=== PATIENT | female | born 1990 | race Caucasian/White ===

== ENCOUNTER 2018-07-13 17:56 | Emergency (ER) | payer BC ==
[~2018-07-13] VITALS: Ht 157.5 cm; Wt 87.5 kg
[~2018-07-13 17:56] MED LIST: AMOXICILLIN875 MG PO; CELEXA10 MG PO; NOHOMEMEDICATIONS; ZANTAC 150MG T150 M1 PO; ZOFRAN 4 MG ORAL4 M1 DIS; ZOFRAN ODT4 MG PO; ZOLOFT25 MG PO; [UNRECOGNIZED DRUG - REMARK]; [UNRECOGNIZED DRUG - REMARK]
[2018-07-13 19:07] VITALS: BP 128/69
== END 2018-07-13 19:07 | disposition home or self-care (01) ==
LOC: M.ERS 17:56
DX: S92.352B Displaced fracture of fifth metatarsal bone, left foot, initial encounter for open fracture (principal); F41.9 Anxiety disorder, unspecified; Z90.49 Acquired absence of other specified parts of digestive tract; W01.0XXA Fall on same level from slipping, tripping and stumbling without subsequent striking against object, initial encounter; Y93.89 Activity, other specified; Y92.89 Other specified places as the place of occurrence of the external cause; Y99.8 Other external cause status

== ENCOUNTER 2019-01-31 17:44 | Emergency (ER) | payer BC ==
[~2019-01-31] VITALS: Ht 157.5 cm; Wt 89.4 kg
[2019-01-31 17:49] VITALS: BP 107/75
[2019-01-31] MEDS ORDERED: BIRTH CONTROL PILL (17:53)
[2019-01-31 18:24] LABS: INFLUENZA A ANTIGEN None Detected (None Detect); INFLUENZA B ANTIGEN None Detected (None Detect)
[2019-01-31] MEDS ORDERED: PREDNISONE 20 M20 M1 PO (18:31)
== END 2019-01-31 18:44 | disposition home or self-care (01) ==
LOC: M.ERS 17:44
PROVIDERS: Nurse Practitioner Family
DX: J06.9 Acute upper respiratory infection, unspecified (principal); M25.561 Pain in right knee; M25.562 Pain in left knee; F41.9 Anxiety disorder, unspecified; Z90.49 Acquired absence of other specified parts of digestive tract; W18.40XA Slipping, tripping and stumbling without falling, unspecified, initial encounter; Y93.64 Activity, baseball; Y92.89 Other specified places as the place of occurrence of the external cause; Y99.8 Other external cause status

== ENCOUNTER 2020-08-29 09:39 | Emergency (ER) | payer BC ==
[~2020-08-29] VITALS: Ht 154.9 cm; Wt 93.0 kg
[~2020-08-29 09:39] MED LIST changes: +BIRTH CONTROL PILL; +PREDNISONE 20 M20 M1 PO
[2020-08-29] MEDS ORDERED: ZPAK PO (10:59)
[2020-08-29] MEDS ORDERED: PREDNISONE 20 M20 M1 PO (10:59)
[2020-08-29 11:17] VITALS: BP 118/72
== END 2020-08-29 11:17 | disposition home or self-care (01) ==
LOC: M.ERS 09:39
DX: U07.1 COVID-19 (principal); Z90.49 Acquired absence of other specified parts of digestive tract

== ENCOUNTER 2021-06-18 20:23 | Emergency (ER) | payer BC ==
[~2021-06-18] VITALS: Ht 157.5 cm; Wt 97.5 kg
[~2021-06-18 20:23] MED LIST changes: +ZPAK PO
[2021-06-18] MEDS ORDERED: CLEOCIN HCL300 MG PO (20:53)
[2021-06-18 21:23] VITALS: BP 144/78
== END 2021-06-18 21:23 | disposition home or self-care (01) ==
LOC: M.ERS 20:23
DX: T81.49XA Infection following a procedure, other surgical site, initial encounter (principal); F41.9 Anxiety disorder, unspecified; Z90.89 Acquired absence of other organs; Z79.899 Other long term (current) drug therapy; Y84.8 Other medical procedures as the cause of abnormal reaction of the patient, or of later complication, without mention of misadventure at the time of the procedure; Y92.89 Other specified places as the place of occurrence of the external cause